=== PATIENT | male | born 1940 | race Caucasian/White ===

== ENCOUNTER 2017-09-28 08:29 | Outpatient (REF) | payer BC, SELFPAY ==
[2017-09-28 14:14] LABS: TSH 13.23 uIU/mL (0.358-3.74)
== END 2017-09-28 08:30 ==
LOC: NCHCN 08:29
PROVIDERS: PCP Family Medicine; Visit Provider Family Medicine
DX: E03.9 Hypothyroidism, unspecified (principal)
CPT/HCPCS: 84443